=== PATIENT | female | born 1935 | race Caucasian/White ===

== ENCOUNTER 2016-04-15 14:42 | Emergency (ER) | payer OTHER ==
--- NOTE | 2016-04-15 16:27 | DIAGNOSTIC IMAGING REPORT ---
PROCEDURE: XR CHEST 2 VIEW INDICATION: PNEUMONIA TECHNIQUE: PA and lateral views. COMPARISON: None. FINDINGS: Left lower lobe infiltrate and pleural effusion. Right lung is clear. Heart and mediastinum are normal. IMPRESSION: 1. Left lower lobe filtrate and pleural effusion.
--- NOTE | 2016-04-15 18:31 | ED ORDER SUMMARY ---
..... Patient: GENARO PERAZA OrderSheet [facility] VisitID: [id number] [address] [place] [address] 80y, F Registration Date/Time: 04/15/2016 ORDER SHEET Weight: 81.6 kg (stated) Allergies: Morphine Sulfate GENERAL ORDERS: Chest 2V Urgent (16:08 04/15/2016 Joni VEGA) (Ack 16:10 AMcQuoid ER Tech1) (16:18 KWilliams R.N.) Tire [employer] Weaver (Continuous) (16:08 04/15/2016 Joni VEGA) (Ack 16:10 AMcQuoid ER Tech1) (16:17 Kandy R.N.) CBC w Diff Urgent (16:04/15/2016 Joni VEGA) (Ack 16:10 AMcQuoid ER Tech1) (17:10 AMcQuoid ER Tech1) CMP Urgent (16:04/15/2016 Joni VEGA) (Ack 16:10 AMcQuoid ER Tech1) (17:10 AMcQuoid ER Tech1) Lipase Urgent (16:08 04/15/2016 Joni VEGA) (Ack 16:10 AMcQuoid ER Tech1) (17:10 AMcQuoid ER Tech1) Amylase Urgent (16:04/15/2016 Joni VEGA) (Ack 16:10 AMcQuoid ER Tech1) (17:10 AMcQuoid ER Tech1) CPK Urgent (16:08 04/15/2016 Joni VEGA) (Ack 16:10 AMcQuoid ER Tech1) (17:10 AMcQuoid ER Tech1) Troponin-I Urgent (16:08 04/15/2016 Joni VEGA) (Ack 16:10 AMcQuoid ER Tech1) (17:10 AMcQuoid ER Tech1) PCT (Procalcitonin) Urgent (16:04/15/2016 Joni VEGA) (Ack 16:10 AMcQuoid ER Tech1) (17:10 AMcQuoid ER Tech1) EKG - ER Stat (16:08 04/15/2016 Joni VGEA) (Ack 16:10 AMcQuoid ER Tech1) (16:32 Kandy Boyd.N.) Pulse oximeter (16:08 04/15/2016 Joni VEGA) (Ack 16:10 AMcQuoid ER Tech1) (16:17 Kandy R.N.) Oxygen (2 L/min) (NC) (16:08 04/15/2016 Joni VEGA) (Ack 16:10 AMcQuoid ER Tech1) (16:17 Kandy R.N.) BNP Urgent (16:09 04/15/2016 Joni VEGA) (Ack 16:13 AMcQuoid ER Tech1) (17:10 AMcQuoid ER Tech1) MEDICATION ORDERS: IV FLUIDS: IV Saline Lock (16:08 04/15/2016 Joni VEGA) (16:34 Kandy Boyd.N.) ORDER SHEET NOTES: [Electronically signed by Karishma Landers R.N. (18:47 04/15/2016)] [Electronically signed by Fabio Sy MD (21:18 04/16/2016)] [Electronically locked/signed by Karishma Landers R.N. (18:47 04/15/2016)]
--- NOTE | 2016-04-15 18:31 | ED NURSING NOTES ---
Clinical Report - Nurses [facility] [address] [place] [address] 04/15/2016 14:42 Patient: GENARO PERAZA TRIAGE Triage time 14:44. Acuity: LEVEL 4. Chief Complaint: SHORTNESS OF BREATH. --14:49 Karishma Landers R.N. 14:44 04/15/16. BP: 154/73. HR: 92. RR: 20. O2 saturation: 92%. Temp: 98.1 F. Pain level now 09/26. --14:49 Karishma Landers R.N. Weight: 81.6 kg stated. Height/Length: 63 inches Per Patient. BMI: 31.9. --14:50 Karishma Landers R.N. Medications CeleBREX Oral 200 mg, as needed. Gabapentin Oral. Lantus Subcutaneous 20 units, every AM. --14:47 Karishma Landers R.N. Perco. --14:47 Karishma Landers R.N. Allergies Morphine Sulfate. --14:47 Karishma Landers R.N. History Arrived by EMS. ( Pt has been on ABX for her pneumonia and not better the nurse told her to call 911). Treatment HEAD SCORER: (antibiotics). --14:49 Karishma Landers R.N. The patient has had a cough. No fever or chills. --14:49 Karishma Landers R.N. PROBLEMS: Ankle Fracture. Abdominal Pain. Heart Disease. Cellulitis. Back Pain. Knee Injury. Arrhythmia. Congestive Heart Failure. Hernia. Acute Myocardial Infarction. Immunizations. Irritable Bowel Syndrome. Chronic Back Pain. Arthritis. Fall. TIA - Transient Ischemic Attack. CVA - Cerebrovascular Accident. Degenerative Joint Disease. Sprain. Hypertension. LNMP - Last Normal Menstrual Period. Diabetes Mellitus. Tetanus Status. --14:46 Karishma Landers R.N. ADDITIONAL SURGERIES: Back Surgery. Fracture Repair. Tonsillectomy. --14:46 Karishma Landers R.N. PHYSICAL ASSESSMENT To room via stretcher. Patient gowned. GENERAL / NEURO / PSYCH: Alert. Appears in distress. RESPIRATORY: Mild respiratory distress. The patient can speak in full sentences. --14:50 Karishma Landers R.N. NURSING PROGRESS NOTES Patient gowned. Call light placed in reach. Patient ready for evaluation- ED physician notified. --14:50 Karishma Landers R.N. Overall patient status is the same. ( Awaiting MD exam). --15:39 Karishma Landers R.N. Patient transported to radiology by stretcher with tech. --16:16 Karishma Landers R.N. 16:34 04/15/2016 Site #1 started via IV in the left forearm with an 20g angiocath using 1% intra-dermal lidocaine; two attempts. Saline lock flushed with 10 mL saline. --16:34 Karishma Landers R.N. EKG time: (16:31). EKG was performed by a tech and shown to the ED physician. --16:40 Dimple Ware 17:36 04/15/16. BP: 110/75. HR: 76. RR: 22. O2 saturation: 93%. --17:37 Karishma Landers R.N. Cardiac rhythm: normal sinus rhythm. --17:37 Karishma Landers R.N. ( Pt complaining frequently about most everything). --17:38 Karishma Landers R.N. 17:45 04/15/16. BP: 130/98. HR: 78. RR: 20. O2 saturation: 98%. --17:47 Karishma Landers R.N. ( O2 to 2 LNC @1715). --17:47 Karishma Landers R.N. 18:46 04/15/2016 Site #1 removed upon discharge. Bandaid applied. --18:46 Karishma Landers R.N. DISPOSITION / DISCHARGE Cardiac rhythm: normal sinus rhythm. Departure time: 18:46. Condition at departure: improved. No learning barriers present. Discharge instructions provided and reviewed with the patient. Patient verbalized understanding. Written instructions provided in Montserratian. The patient was discharged home and accompanied by family. She left the Emergency Department ambulatory and via private vehicle. Family member driving. --18:46 Karishma Landers R.N. 18:44 04/15/16. BP: 109/90. HR: 81. RR: 26. O2 saturation: 96%. Pain level now 0/10. --18:46 Karishma Landers R.N. Locked/Released at 04/15/2016 18:47 by Karishma Landers R.N.
--- NOTE | 2016-04-15 18:31 | ED CLINICAL REPORT ---
Clinical Report - Physicians/Mid Levels [facility] [address] [place] [address] 04/15/2016 14:42 Patient: GENARO PERAZA Time Seen: 14:45. Arrived- By ambulance. Historian- patient and EMS personnel. HISTORY OF PRESENT ILLNESS Chief Complaint: DYSPNEA. This started about 2 months ago and is still present but is better now. It was gradual in onset and has been constant and waxing/waning. The dyspnea is severe. (at its worst. This is much better now since her hospitalization.). The patient doesn't have difficulty speaking. The dyspnea is worsened by walking and exertion and is improved by rest. The patient has had a moderate cough, chest discomfort, chills and dyspnea on exertion. She has had moderate amounts of thick, yellow, green sputum (recently - gone today). She has had fever (recently - gone today). She has experienced sweating episodes (recently - gone today). She has had wheezing (recently - gone today). No calf pain or foot swelling. (the patient says that generally she is feeling much better after her recent hospitalization and home antibiotics. However, when she called her doctor's office and told them of her symptoms she was told to come to the emergency room.). Recent medical care: The patient was seen recently at another facility in the emergency department and hospitalized. Seen for similar symptoms. Diagnosis: pneumonia. REVIEW OF SYSTEMS The patient has had fever and chills and experienced sweats. No calf pain, chest pain, abdominal pain, black stools or bloody stools. No constipation, diarrhea or urinary problems. The patient has had pedal edema (chronically). It has been similar to previous symptoms. She has had palpitations (chronically). All systems otherwise negative, except as recorded above. PAST HISTORY Dr. Jorge Pittman. Problems: Ankle Fracture. Abdominal Pain. Heart Disease. Cellulitis. Back Pain. Knee Injury. Arrhythmia. Congestive Heart Failure. Hernia. Acute Myocardial Infarction. Irritable Bowel Syndrome. Chronic Back Pain. Arthritis. Fall. Degenerative Joint Disease. Sprain. Hypertension. Diabetes Mellitus. Additional Surgeries: Back Surgery. Fracture Repair. Tonsillectomy. Medications: Perco. CeleBREX Oral 200 mg, as needed. Gabapentin Oral. Lantus Subcutaneous 20 units, every AM. Allergies: Morphine Sulfate. SOCIAL HISTORY Never smoker. No alcohol use or drug use. Is a local resident. Resides in a house. She lives with a friend. FAMILY HISTORY Denies family medical history. ADDITIONAL NOTES The nursing notes have been reviewed. PHYSICAL EXAM Vital Signs: 04/15/2016 14:44 BP: 154/73. HR: 92. RR: 20. O2 saturation: 92%. Temp: 98.1 F. Have been reviewed. Appearance: Alert. Eyes: Pupils equal, round and reactive to light. ENT: Pharynx normal. Uvula midline. Neck: Normal inspection. Neck supple. Respiratory: No respiratory distress. Prolonged expirations. Moderate bilateral rhonchi present posteriorly and in the bases. No wheezes or stridor. Abdomen: Soft and nontender. No organomegaly. Obese. Back: Normal inspection. Skin: Skin warm and dry. Normal skin color. Normal skin turgor. Extremities: Extremities exhibit normal ROM. No calf tenderness. No lower extremity edema. LABS, X-RAYS, AND EKG EKG: Q waves in lead II, III and aVF consistent with infarction. LVH. Chest X-ray: (IMPRESSION: 1. Left lower lobe filtrate and pleural effusion.). The X-rays were interpreted by the radiologist and contemporaneously by me. Laboratory Tests: CBC w Diff: (MARIO: 04/15/2016 17:00) ( MsgRcvd 04/15/2016 17:23) Final results Test Result Flag Units (Reference) WHITE BLOOD COUNT 8.2 K/uL (4.5-11.5) RED BLOOD COUNT 4.13 M/uL (4.00-5.20) HEMOGLOBIN 12.0 gm/dL (12.0-16.0) HEMATOCRIT 36.2 % (36.0-46.0) MEAN CELL VOLUME 88 fL (80-100) MEAN CORPUSCULAR HGB 29 pg (26-34) MEAN CORPUSCULAR HGB CONC 33 g/dL (31-37) RED CELL DISTRIBUTION WIDTH 14.3 % (11.6-14.8) PLATELET COUNT 302 K/uL (150-400) NEUTROPHIL % 72.3 % (50-75) LYMPH % 23.1 L % (25-40) MONO % 4.4 % (3-14) EOSINOPHIL % 0 % (0-4) BASOPHIL % 0.2 % (0-2) BNP: (MARIO: 04/15/2016 17:00) ( [facility] Final results Test Result Flag Units (Reference) B-TYPE NATRIURETIC PEPTIDE 51.1 pg/ml (5-100) [id number]: (MRAIO: 04/15/2016 17:00) ( [facility] 04/15/2016 18:11) Final results Test Result Flag Units (Reference) PROCALCITONIN <0.5 ng/mL (0-0.5) PCT Concentration: Interpretation : Risk/option for action PCT <=0.5 ng/mL : Systemic : Low risk forinfection(sepsis): progression to severeis not likely. : systemic infection.Local bacterial : CAUTION-PCT levelsinfection is : below 0.5 ng/mL do notpossible. : exclude an infection,because localizedinfections (withoutsystemic signs) may beassociated with suchlow levels. If PCT ismeasured very earlyafter a bacterialchallenge (usually <6hours), these valuesmay still be low. Inthis case PCT shouldbe re-assessed 6-24hours later. PCT >0.5 and : Systemic infection: Moderate risk for<= 2 ng/mL : (sepsis) is : progression to severepossible, but : systemic infection.other conditions : The patient should beare known to : closely monitoredelevate PCT. : both clinically andby re-assessing PCTwithin 6-24 hours. PCT > 2 ng/mL : Systemic infection: High risk for(sepsis) is likely: progression to severeunless other : systemic infection.causes are known. : PCT >= 10 ng/mL : Important systemic: High likelihood ofinflammatory : severe sepsis orresponse, almost : septic shock.exclusively due to:severe bacterial :sepsis or septic :shock. : CMP: (MARIO: 04/15/2016 17:00) ( MsgRcvd 04/15/2016 17:55) Final results Test Result Flag Units (Reference) GLUCOSE 207 H mg/dL (70-110) BUN 28 H mg/dL (7-18) CREATININE 1.2 mg/dL (0.6-1.3) Estimated GFR 46.06 mL/min Estimated GFR- 55.82 mL/min Note: Persistent reduction over 3 months in eGFR<60 mL/min/1.73 m2 defines CKD. Patients with eGFR values>=60 mL/min/1.73 m2 may also have CKD if evidence ofpersistent proteinuria. Additional information may be foundat [email or web address].org. SODIUM 140 mmol/L (136-145) POTASSIUM 4.9 mmol/L (3.5-5.1) CHLORIDE 104 mmol/L (98-107) CARBON DIOXIDE 29 mmol/L (21-32) CALCIUM 9.1 mg/dL (8.5-10.1) TOTAL PROTEIN 7.3 g/dL (6.4-8.2) ALBUMIN 3.4 g/dL (3.3-5.0) BILIRUBIN, TOTAL 0.2 mg/dL (0.0-1.0) ALKALINE PHOSPHATASE 75 U/L (46-116) AST (SGOT) 12 L U/L (15-37) ALT (SGPT) 19 U/L (12-78) LIPASE 71 L U/L (73-393) AMYLASE 40 U/L (25-115) CPK 54 U/L (24-260) TROPONIN I <0.05 ng/mL (0.00-1.5) TROPONIN REFERENCE RANGE:<0.1 NEGATIVE0.1-1.5 INDETERMINANT>1.5 POSITIVE . PROGRESS AND PROCEDURES Course of Care: 18:22 04/15/16. The patient says that she is feeling fine and would like to go home. Patient/family counseled. Old medical records reviewed. (From her recent hospitalization at [place]. She was treated there with ceftriaxone and Zithromax and she says that she completed a Zithromax course at home.). Disposition: Discharged. Condition: stable. CLINICAL IMPRESSION Pneumonia. (treatedresolving). INSTRUCTIONS Warnings: Further evaluation is necessary. GENERAL WARNINGS: Return or contact your physician immediately if your condition worsens or changes unexpectedly, if not improving as expected, or if other problems arise. Your Current Medications: CONTINUE TAKING THE FOLLOWING MEDICATIONS: CeleBREX Oral : 200 mg, prn. Gabapentin Oral. Lantus Subcutaneous : 20 units every AM. Perco*. Follow-up: Follow up with your doctor Dr. Jorge [facility] tomorrow. Call for an appointment. Understanding of the discharge instructions verbalized by patient. (Electronically signed by Fabio Sy MD 04/16/2016 21:19)
--- NOTE | 2016-04-15 18:31 | ED ORDER SUMMARY ---
..... Patient: GENARO PERAZA OrderSheet [facility] VisitID: [id number] [address] [place] [address] 80y, F Registration Date/Time: 04/15/2016 ORDER SHEET Weight: 81.6 kg (stated) Allergies: Morphine Sulfate GENERAL ORDERS: Chest 2V Urgent (16:08 04/15/2016 Joni VEGA) (Ack 16:10 AMcQuoid ER Tech1) (16:18 KWilliams R.N.) Director Of [employer] Work (Continuous) (16:08 04/15/2016 Joni VEGA) (Ack 16:10 AMcQuoid ER Tech1) (16:17 Kandy R.N.) CBC w Diff Urgent (16:04/15/2016 Joni VEGA) (Ack 16:10 AMcQuoid ER Tech1) (17:10 AMcQuoid ER Tech1) CMP Urgent (16:04/15/2016 Joni VEGA) (Ack 16:10 AMcQuoid ER Tech1) (17:10 AMcQuoid ER Tech1) Lipase Urgent (16:08 04/15/2016 Joni VEGA) (Ack 16:10 AMcQuoid ER Tech1) (17:10 AMcQuoid ER Tech1) Amylase Urgent (16:04/15/2016 Joni VEGA) (Ack 16:10 AMcQuoid ER Tech1) (17:10 AMcQuoid ER Tech1) CPK Urgent (16:08 04/15/2016 Joni VEGA) (Ack 16:10 AMcQuoid ER Tech1) (17:10 AMcQuoid ER Tech1) Troponin-I Urgent (16:08 04/15/2016 Joni VEGA) (Ack 16:10 AMcQuoid ER Tech1) (17:10 AMcQuoid ER Tech1) PCT (Procalcitonin) Urgent (16:04/15/2016 Joni VEGA) (Ack 16:10 AMcQuoid ER Tech1) (17:10 AMcQuoid ER Tech1) EKG - ER Stat (16:08 04/15/2016 Joni VEGA) (Ack 16:10 AMcQuoid ER Tech1) (16:32 Kandy Boyd.N.) Pulse oximeter (16:08 04/15/2016 Joni VEGA) (Ack 16:10 AMcQuoid ER Tech1) (16:17 Kandy R.N.) Oxygen (2 L/min) (NC) (16:08 04/15/2016 Joni VEGA) (Ack 16:10 AMcQuoid ER Tech1) (16:17 Kandy R.N.) BNP Urgent (16:09 04/15/2016 Joni VEGA) (Ack 16:13 AMcQuoid ER Tech1) (17:10 AMcQuoid ER Tech1) MEDICATION ORDERS: IV FLUIDS: IV Saline Lock (16:08 04/15/2016 Joni VEGA) (16:34 Kandy Boyd.N.) ORDER SHEET NOTES: [Electronically signed by Karishma Landers R.N. (18:47 04/15/2016)] [Electronically signed by Fabio Sy MD (21:18 04/16/2016)] [Electronically locked/signed by Karishma Landers R.N. (18:47 04/15/2016)]
--- NOTE | 2016-04-15 18:31 | ED NURSING NOTES ---
Clinical Report - Nurses [facility] [address] [place] [address] 04/15/2016 14:42 Patient: GENARO PERAZA TRIAGE Triage time 14:44. Acuity: LEVEL 4. Chief Complaint: SHORTNESS OF BREATH. --14:49 Karishma Landers R.N. 14:44 04/15/16. BP: 154/73. HR: 92. RR: 20. O2 saturation: 92%. Temp: 98.1 F. Pain level now 09/26. --14:49 Karishma Landers R.N. Weight: 81.6 kg stated. Height/Length: 63 inches Per Patient. BMI: 31.9. --14:50 Karishma Landers R.N. Medications CeleBREX Oral 200 mg, as needed. Gabapentin Oral. Lantus Subcutaneous 20 units, every AM. --14:47 Karishma Landers R.N. Perco. --14:47 Karishma Landers R.N. Allergies Morphine Sulfate. --14:47 Karishma Landers R.N. History Arrived by EMS. ( Pt has been on ABX for her pneumonia and not better the nurse told her to call 911). Treatment TIP LENGTH CHECKER: (antibiotics). --14:49 Karishma Landers R.N. The patient has had a cough. No fever or chills. --14:49 Karishma Landers R.N. PROBLEMS: Ankle Fracture. Abdominal Pain. Heart Disease. Cellulitis. Back Pain. Knee Injury. Arrhythmia. Congestive Heart Failure. Hernia. Acute Myocardial Infarction. Immunizations. Irritable Bowel Syndrome. Chronic Back Pain. Arthritis. Fall. TIA - Transient Ischemic Attack. CVA - Cerebrovascular Accident. Degenerative Joint Disease. Sprain. Hypertension. LNMP - Last Normal Menstrual Period. Diabetes Mellitus. Tetanus Status. --14:46 Karishma Landers R.N. ADDITIONAL SURGERIES: Back Surgery. Fracture Repair. Tonsillectomy. --14:46 Karishma Landers R.N. PHYSICAL ASSESSMENT To room via stretcher. Patient gowned. GENERAL / NEURO / PSYCH: Alert. Appears in distress. RESPIRATORY: Mild respiratory distress. The patient can speak in full sentences. --14:50 Karishma Landers R.N. NURSING PROGRESS NOTES Patient gowned. Call light placed in reach. Patient ready for evaluation- ED physician notified. --14:50 Karishma Landers R.N. Overall patient status is the same. ( Awaiting MD exam). --15:39 Karishma Landers R.N. Patient transported to radiology by stretcher with tech. --16:16 Karishma Landers R.N. 16:34 04/15/2016 Site #1 started via IV in the left forearm with an 20g angiocath using 1% intra-dermal lidocaine; two attempts. Saline lock flushed with 10 mL saline. --16:34 Karishma Landers R.N. EKG time: (16:31). EKG was performed by a tech and shown to the ED physician. --16:40 Dimple Ware 17:36 04/15/16. BP: 110/75. HR: 76. RR: 22. O2 saturation: 93%. --17:37 Karishma Landers R.N. Cardiac rhythm: normal sinus rhythm. --17:37 Karishma Landers R.N. ( Pt complaining frequently about most everything). --17:38 Karishma Landers R.N. 17:45 04/15/16. BP: 130/98. HR: 78. RR: 20. O2 saturation: 98%. --17:47 Karishma Landers R.N. ( O2 to 2 LNC @1715). --17:47 Karishma Landers R.N. 18:46 04/15/2016 Site #1 removed upon discharge. Bandaid applied. --18:46 Karishma Landers R.N. DISPOSITION / DISCHARGE Cardiac rhythm: normal sinus rhythm. Departure time: 18:46. Condition at departure: improved. No learning barriers present. Discharge instructions provided and reviewed with the patient. Patient verbalized understanding. Written instructions provided in Togolese. The patient was discharged home and accompanied by family. She left the Emergency Department ambulatory and via private vehicle. Family member driving. --18:46 Karishma Landers R.N. 18:44 04/15/16. BP: 109/90. HR: 81. RR: 26. O2 saturation: 96%. Pain level now 0/10. --18:46 Karishma Landers R.N. Locked/Released at 04/15/2016 18:47 by Karishma Landers R.N.
--- NOTE | 2016-04-15 18:31 | ED CLINICAL REPORT ---
Clinical Report - Physicians/Mid Levels [facility] [address] [place] [address] 04/15/2016 14:42 Patient: GENARO PERAZA Time Seen: 14:45. Arrived- By ambulance. Historian- patient and EMS personnel. HISTORY OF PRESENT ILLNESS Chief Complaint: DYSPNEA. This started about 2 months ago and is still present but is better now. It was gradual in onset and has been constant and waxing/waning. The dyspnea is severe. (at its worst. This is much better now since her hospitalization.). The patient doesn't have difficulty speaking. The dyspnea is worsened by walking and exertion and is improved by rest. The patient has had a moderate cough, chest discomfort, chills and dyspnea on exertion. She has had moderate amounts of thick, yellow, green sputum (recently - gone today). She has had fever (recently - gone today). She has experienced sweating episodes (recently - gone today). She has had wheezing (recently - gone today). No calf pain or foot swelling. (the patient says that generally she is feeling much better after her recent hospitalization and home antibiotics. However, when she called her doctor's office and told them of her symptoms she was told to come to the emergency room.). Recent medical care: The patient was seen recently at another facility in the emergency department and hospitalized. Seen for similar symptoms. Diagnosis: pneumonia. REVIEW OF SYSTEMS The patient has had fever and chills and experienced sweats. No calf pain, chest pain, abdominal pain, black stools or bloody stools. No constipation, diarrhea or urinary problems. The patient has had pedal edema (chronically). It has been similar to previous symptoms. She has had palpitations (chronically). All systems otherwise negative, except as recorded above. PAST HISTORY Dr. Jorge Pittman. Problems: Ankle Fracture. Abdominal Pain. Heart Disease. Cellulitis. Back Pain. Knee Injury. Arrhythmia. Congestive Heart Failure. Hernia. Acute Myocardial Infarction. Irritable Bowel Syndrome. Chronic Back Pain. Arthritis. Fall. Degenerative Joint Disease. Sprain. Hypertension. Diabetes Mellitus. Additional Surgeries: Back Surgery. Fracture Repair. Tonsillectomy. Medications: Perco. CeleBREX Oral 200 mg, as needed. Gabapentin Oral. Lantus Subcutaneous 20 units, every AM. Allergies: Morphine Sulfate. SOCIAL HISTORY Never smoker. No alcohol use or drug use. Is a local resident. Resides in a house. She lives with a friend. FAMILY HISTORY Denies family medical history. ADDITIONAL NOTES The nursing notes have been reviewed. PHYSICAL EXAM Vital Signs: 04/15/2016 14:44 BP: 154/73. HR: 92. RR: 20. O2 saturation: 92%. Temp: 98.1 F. Have been reviewed. Appearance: Alert. Eyes: Pupils equal, round and reactive to light. ENT: Pharynx normal. Uvula midline. Neck: Normal inspection. Neck supple. Respiratory: No respiratory distress. Prolonged expirations. Moderate bilateral rhonchi present posteriorly and in the bases. No wheezes or stridor. Abdomen: Soft and nontender. No organomegaly. Obese. Back: Normal inspection. Skin: Skin warm and dry. Normal skin color. Normal skin turgor. Extremities: Extremities exhibit normal ROM. No calf tenderness. No lower extremity edema. LABS, X-RAYS, AND EKG EKG: Q waves in lead II, III and aVF consistent with infarction. LVH. Chest X-ray: (IMPRESSION: 1. Left lower lobe filtrate and pleural effusion.). The X-rays were interpreted by the radiologist and contemporaneously by me. Laboratory Tests: CBC w Diff: (MARIO: 04/15/2016 17:00) ( MsgRcvd 04/15/2016 17:23) Final results Test Result Flag Units (Reference) WHITE BLOOD COUNT 8.2 K/uL (4.5-11.5) RED BLOOD COUNT 4.13 M/uL (4.00-5.20) HEMOGLOBIN 12.0 gm/dL (12.0-16.0) HEMATOCRIT 36.2 % (36.0-46.0) MEAN CELL VOLUME 88 fL (80-100) MEAN CORPUSCULAR HGB 29 pg (26-34) MEAN CORPUSCULAR HGB CONC 33 g/dL (31-37) RED CELL DISTRIBUTION WIDTH 14.3 % (11.6-14.8) PLATELET COUNT 302 K/uL (150-400) NEUTROPHIL % 72.3 % (50-75) LYMPH % 23.1 L % (25-40) MONO % 4.4 % (3-14) EOSINOPHIL % 0 % (0-4) BASOPHIL % 0.2 % (0-2) BNP: (MARIO: 04/15/2016 17:00) ( [facility] [place]51) Final results Test Result Flag Units (Reference) B-TYPE NATRIURETIC PEPTIDE 51.1 pg/ml (5-100) [id number]: (MARIO: 04/15/2016 17:00) ( [facility] [place] 04/15/2016 18:11) Final results Test Result Flag Units (Reference) PROCALCITONIN <0.5 ng/mL (0-0.5) PCT Concentration: Interpretation : Risk/option for action PCT <=0.5 ng/mL : Systemic : Low risk forinfection(sepsis): progression to severeis not likely. : systemic infection.Local bacterial : CAUTION-PCT levelsinfection is : below 0.5 ng/mL do notpossible. : exclude an infection,because localizedinfections (withoutsystemic signs) may beassociated with suchlow levels. If PCT ismeasured very earlyafter a bacterialchallenge (usually <6hours), these valuesmay still be low. Inthis case PCT shouldbe re-assessed 6-24hours later. PCT >0.5 and : Systemic infection: Moderate risk for<= 2 ng/mL : (sepsis) is : progression to severepossible, but : systemic infection.other conditions : The patient should beare known to : closely monitoredelevate PCT. : both clinically andby re-assessing PCTwithin 6-24 hours. PCT > 2 ng/mL : Systemic infection: High risk for(sepsis) is likely: progression to severeunless other : systemic infection.causes are known. : PCT >= 10 ng/mL : Important systemic: High likelihood ofinflammatory : severe sepsis orresponse, almost : septic shock.exclusively due to:severe bacterial :sepsis or septic :shock. : CMP: (MARIO: 04/15/2016 17:00) ( MsgRcvd 04/15/2016 17:55) Final results Test Result Flag Units (Reference) GLUCOSE 207 H mg/dL (70-110) BUN 28 H mg/dL (7-18) CREATININE 1.2 mg/dL (0.6-1.3) Estimated GFR 46.06 mL/min Estimated GFR- 55.82 mL/min Note: Persistent reduction over 3 months in eGFR<60 mL/min/1.73 m2 defines CKD. Patients with eGFR values>=60 mL/min/1.73 m2 may also have CKD if evidence ofpersistent proteinuria. Additional information may be foundat www.[email or web address].org. SODIUM 140 mmol/L (136-145) POTASSIUM 4.9 mmol/L (3.5-5.1) CHLORIDE 104 mmol/L (98-107) CARBON DIOXIDE 29 mmol/L (21-32) CALCIUM 9.1 mg/dL (8.5-10.1) TOTAL PROTEIN 7.3 g/dL (6.4-8.2) ALBUMIN 3.4 g/dL (3.3-5.0) BILIRUBIN, TOTAL 0.2 mg/dL (0.0-1.0) ALKALINE PHOSPHATASE 75 U/L (46-116) AST (SGOT) 12 L U/L (15-37) ALT (SGPT) 19 U/L (12-78) LIPASE 71 L U/L (73-393) AMYLASE 40 U/L (25-115) CPK 54 U/L (24-260) TROPONIN I <0.05 ng/mL (0.00-1.5) TROPONIN REFERENCE RANGE:<0.1 NEGATIVE0.1-1.5 INDETERMINANT>1.5 POSITIVE . PROGRESS AND PROCEDURES Course of Care: 18:22 04/15/16. The patient says that she is feeling fine and would like to go home. Patient/family counseled. Old medical records reviewed. (From her recent hospitalization at [place]. She was treated there with ceftriaxone and Zithromax and she says that she completed a Zithromax course at home.). Disposition: Discharged. Condition: stable. CLINICAL IMPRESSION Pneumonia. (treatedresolving). INSTRUCTIONS Warnings: Further evaluation is necessary. GENERAL WARNINGS: Return or contact your physician immediately if your condition worsens or changes unexpectedly, if not improving as expected, or if other problems arise. Your Current Medications: CONTINUE TAKING THE FOLLOWING MEDICATIONS: CeleBREX Oral : 200 mg, prn. Gabapentin Oral. Lantus Subcutaneous : 20 units every AM. Perco*. Follow-up: Follow up with your doctor Dr. Jorge Fuller [facility] tomorrow. Call for an appointment. Understanding of the discharge instructions verbalized by patient. (Electronically signed by Fabio Sy MD 04/16/2016 21:19)
--- NOTE | 2016-04-16 21:19 | ED MAR SUMMARY ---
..... Medication Administration Record [facility] [address], [place] [id number] Patient: GENARO PERAZA Visit ID: [id number] 80y, F Weight: 81.6 kg Height/Length: 63 in BMI: 31.9 ALLERGIES: Morphine Sulfate
--- NOTE | 2016-04-16 21:19 | ED DISCHARGE INSTRUCTIONS ---
Patient: GENARO PERAZA General Instructions [facility] VisitID: [id number] [address] [place] [address] 80y, F Registration Date/Time: 04/15/2016 Pneumonia. (treatedresolving). INSTRUCTIONS Warnings: Further evaluation is necessary. GENERAL WARNINGS: Return or contact your physician immediately if your condition worsens or changes unexpectedly, if not improving as expected, or if other problems arise. Your Current Medications: CONTINUE TAKING THE FOLLOWING MEDICATIONS: CeleBREX Oral : 200 mg, prn. Gabapentin Oral. Lantus Subcutaneous : 20 units every AM. Perco*. Follow-up: Follow up with your doctor Dr. Jorge Pittman tomorrow. Call for an appointment. Understanding of the discharge instructions verbalized by patient. ADDITIONAL INFORMATION Pneumonia (Adult) Pneumonia is an infection deep within the lung, in the small air sacs (alveoli). It may be due to a virus or bacteria and is usually treated with an antibiotic. Severe cases require treatment in the hospital. Milder cases can be treated at home. Symptoms usually start to improve during the first2 days of treatment. Home Care: Rest at home for the first 23 days or until you feel stronger. When resuming activity, dont let yourself become overly tired. Avoid exposure to cigarette smoke (yours or others). You may use acetaminophen (Tylenol) or ibuprofen (Motrin, Advil) to control fever or pain, unless another medicine was prescribed. [NOTE: If you have chronic liver or kidney disease or ever had a stomach ulcer or GI bleeding, talk with your doctor before using these medicines.] (Aspirin should never be used in anyone under 18 years of age who is ill with a fever. It may cause severe liver damage.) Your appetite may be poor so a light diet is fine. Keep well hydrated by drinking 68 glasses of fluids per day (water, sport drinks such as Gatorade, sodas without caffeine, juices, tea, soup, etc.). This will help loosen secretions in the lung, making it easier for you to cough up the phlegm (sputum). If you also have heart or kidney disease, check with your doctor before you drink extra amounts of fluids. Finish all antibiotic medicine prescribed, even if you are feeling better after a few days. Follow Up with your doctor in the next 23 days (or as advised) to be sure you are responding properly to the medicine. [NOTE: If you are age 65 or older, or if you have chronic lung disease (asthma, emphysema or COPD), we recommendthe pneumococcal vaccination and a yearlyinfluenzavaccination(flu-shot) every . Ask your doctor about this.] Get Prompt Medical Attention if any of the following occur: Not getting better within the first 48 hours of treatment Increasing shortness of breath or rapid breathing (over 25 breaths/minute) Coughing up blood or increasing chest pain with breathing Fever of 100.4F (38C) oral or higher, not better with fever medication Increasing weakness, dizziness or fainting Increasing thirst or dry mouth Sinus pain, headache or a stiff neck Chest pain not caused by coughing You have been given the following additional information: Pneumonia (Adult) (Electronically signed by Fabio Sy MD 04/16/2016 21:19)
--- NOTE | 2016-04-16 21:19 | ED MED RECONCILIATION SUMMARY ---
Patient: GENARO PERAZA Medication Reconciliation Report [facility] VisitID: [id number] [address] [place] [place] [address] 80y, F Registration Date/Time: 04/15/2016 Weight: 81.6 kg Height/Length: 63 in. BMI: 31.9 ALLERGIES: Morphine Sulfate The patient's Home Medications are listed below: CONTINUE TAKING THE FOLLOWING MEDICATIONS: CeleBREX Oral 200 mg Gabapentin Oral Lantus Subcutaneous 20 units, every AM Perco The source(s) of the original Home Medication information: Not obtained. The following Medications were given to the patient in the Emergency Department: None. The following Medications were prescribed to the patient: None.
--- NOTE | 2016-04-16 21:19 | ED MED RECONCILIATION SUMMARY ---
Patient: GENARO PERAZA Medication Reconciliation Report [facility] VisitID: [id number] [address] [place] [address] 80y, F Registration Date/Time: 04/15/2016 Weight: 81.6 kg Height/Length: 63 in. BMI: 31.9 ALLERGIES: Morphine Sulfate The patient's Home Medications are listed below: CONTINUE TAKING THE FOLLOWING MEDICATIONS: CeleBREX Oral 200 mg Gabapentin Oral Lantus Subcutaneous 20 units, every AM Perco The source(s) of the original Home Medication information: Not obtained. The following Medications were given to the patient in the Emergency Department: None. The following Medications were prescribed to the patient: None.
--- NOTE | 2016-04-16 21:19 | ED MAR SUMMARY ---
..... Medication Administration Record [facility] [address] [place], [place] [id number] Patient: GENARO PERAZA Visit ID: [id number] 80y, F Weight: 81.6 kg Height/Length: 63 in BMI: 31.9 ALLERGIES: Morphine Sulfate
== END 2016-04-15 18:47 | disposition home or self-care (01) ==
LOC: ED SRH 14:42
DX: J18.9 Pneumonia, unspecified organism (principal); I10 Essential (primary) hypertension; E11.9 Type 2 diabetes mellitus without complications; Z79.4 Long term (current) use of insulin; Z88.5 Allergy status to narcotic agent; Z79.899 Other long term (current) drug therapy
CPT/HCPCS: 90074; 90100; 90616; 91320; 92235; 92530; 92610; 93004; 95059